=== PATIENT | female | born 1940 | race Caucasian/White ===

== ENCOUNTER 2023-12-19 11:44 | Emergency (ER) | payer MEDICARE, SELFPAY ==
--- NOTE | ~2023-12-19 | CT_ITS ---
EXAMINATION: CT facial & cervical spine wo DATE: 12/19/2023 12:46 INDICATION: Head injury. TECHNIQUE: Computed tomography (CT) of the maxillofacial region and cervical spine was performed with out intravenous contrast. Automated exposure control and iterative reconstruction technique were empl oyed. The dose-length product was 136.39 mGy-cm. COMPARISON: None FINDINGS: MAXILLOFACIAL CT: There is a left frontal scalp laceration. There are likely changes of ocular lens replacement surgeri es. There is rightward deviation of the nasal septum. There is complete opacification of right maxill tamera sinus with thickening and sclerosis of the sinus boudreaux, consistent with chronic sinusitis. There is a fracture of anterior wall of left maxillary sinus. There is hematoma in left maxillary sinus. CERVICAL SPINE CT: There is mild scarring at the lung apices. There is 7 degrees levocurvature of cervical spine. Verteb ral body heights are normal. There is mildly decreased disc height at C5-C6. The following disc level s are specifically discussed: C2-C3: There is no uncovertebral joint osteoarthritis. There is severe bilateral facet joint osteoart hritis. There is no neural foraminal stenosis. There is no central canal stenosis. C3-C4: There is ankylosis of left uncovertebral joint without hypertrophy. There is ankylosis of the facet joints with mild hypertrophy. There is mild left neural foraminal stenosis. There is no central canal stenosis. C4-C5: There is no uncovertebral joint osteoarthritis. There is severe bilateral facet joint osteoart hritis. There is mild right neural foraminal stenosis. There is no central canal stenosis. C5-C6: There is no uncovertebral joint osteoarthritis. There is severe bilateral facet joint osteoart hritis. There is mild left neural foraminal stenosis. There is no central canal stenosis. C6-C7: There is no uncovertebral joint osteoarthritis. There is severe bilateral facet joint osteoart hritis. There is mild left neural foraminal stenosis. There is no central canal stenosis. C7-T1: There is no uncovertebral joint osteoarthritis. There is severe bilateral facet joint osteoart hritis. There is no neural foraminal stenosis. There is no central canal stenosis. IMPRESSION: 1. Fracture of anterior wall of left maxillary sinus. 2. Chronic sinusitis. 3. Mild cervical spondylosis. Reviewed, dictated and finalized at location A.
--- NOTE | ~2023-12-19 | CT_ITS ---
EXAMINATION: CT brain wo con DATE: 12/19/2023 12:46 INDICATION: Head injury. TECHNIQUE: Computed tomography (CT) of the head was performed without intravenous contrast. The mA wa s adjusted according to patient size. Iterative reconstruction technique was employed. The dose-lengt h product was 681.00 mGy-cm. COMPARISON: None FINDINGS: There are scattered areas of low attenuation in the cerebral white matter, which is within normal limits for the patient's age. There is no intracranial hemorrhage, acute infarction, or abnorm al intracranial mass lesion. The ventricles are normal in size. There is complete opacification of ri ght maxillary sinus with thickening and sclerosis of the sinus boudreaux. There is an air/fluid level in left maxillary sinus. There are likely changes of ocular lens replacement surgeries. The mastoid air cells are normal. There is left frontal scalp soft tissue swelling. There is left cheek soft tissue s welling. There is a fracture of anterior wall of left maxillary sinus. IMPRESSION: 1. Normal aging brain. 2. Fracture of anterior wall of left maxillary sinus. 3. Chronic sinusitis. Reviewed, dictated and finalized at location A.
[2023-12-19 11:48] VITALS: BP 162/65; PULSE 61; RESP 16; TEMP 36.6; O2SAT 98
--- NOTE | 2023-12-19 13:04 | ED.FALL ---
HPI - Fall General Chief Complaint: Fall Stated Complaint: unwitnessed glf Time Seen by Provider: 12/19/23 12:00 History of Present Illness HPI Narrative: Patient is an 83-year-old female with dementia who presents ER after an unwitnessed fall at her correction. Laceration left supraorbital ridge. Bruising over the nose with swelling around the left thigh. Extraocular movements intact. Patient reports she can see. She is orient x1. Unknown last tetanus shot. Daughter bedside. Related Data Allergies Allergy/AdvReac Type Severity Reaction Status Date / Time acetaminophen [From Percocet] Allergy Unknown Verified 12/19/23 12:03 oxycodone [From Percocet] Allergy Unknown Verified 12/19/23 12:03 Sulfa (Sulfonamide Allergy Unknown Verified 12/19/23 12:03 Antibiotics) Review of Systems Review of Systems: ROS unobtainable: Yes unobtainable due to mental status PMFSH Past Medical History Medical History (Updated 12/19/23 @ 15:13 by Max Oconnor MD) Anxiety Chronic kidney disease Dementia Depression Hypothyroidism Surgical History Surgical History (Updated 12/19/23 @ 13:06 by Max Oconnor MD) Surgical history unknown Exam Narrative: GENERAL: Well-appearing, well-nourished, and in no acute distress. HEAD: Normocephalic, 3 cm laceration left supraorbital ridge. EYES: PERRL and EOMI. Periorbital swelling left eye. Two small skin tears inferior to left eye. ENT: Mucous membranes moist. Puncture wound left upper lip NECK: Supple. C-spine immobilized without midline tenderness. CHEST: Clear to auscultation. No respiratory distress. HEART: Regular rate and rhythm. Normal peripheral pulses. ABDOMEN: Soft, nontender, nondistended. EXTREMITIES: Normal range of motion. No edema. SKIN: Warm, dry, no rash. As above. NEURO: Alert and oriented x1. Course Course Emergency Course: Patient resting comfortably. Sinus precautions for maxillary fracture as well as Augmentin. Follow up if needed. Daughter verbalized understanding. Laceration repaired. Discharged. Vital Signs Vital signs: Vital Signs Temperature 97.8 F 12/19/23 11:48 Pulse Rate 61 12/19/23 11:48 Respiratory Rate 16 12/19/23 11:48 Blood Pressure 162/65 H 12/19/23 11:48 Pulse Oximetry 98 12/19/23 11:48 Oxygen Delivery Room Air 12/19/23 11:48 Temperature 97.8 F 12/19/23 11:48 Pulse Rate 61 12/19/23 11:48 Respiratory Rate 16 12/19/23 11:48 Blood Pressure 162/65 H 12/19/23 11:48 Pulse Oximetry 98 12/19/23 11:48 Oxygen Delivery Room Air 12/19/23 11:48 Procedures Laceration Laceration 1: Date: 12/19/23 Time: 15:10 Site: face Side (If applicable): left Size (cm): 3.5 Description: irregular and clean Depth: simple, single layer (into subcu) Local Anesthetic: lidocaine 1% and with epi Amount of anesthesia used (mL): 3 Pre-repair: wound explored, irrigated extensively and wound margins revised ====== Skin Level ====== Skin layer closed with: nylon and prolene Size (cm): 4-0 Number of sutures: 5 Technique: simple, interrupted ====== Subcutaneous Layer ====== Subcutaneous layer closed with: vicryl Size: 5-0 Number of sutures: 3 Technique: simple, interrupted ====== Muscle Layer ====== ====== Tendon Layer ====== MDM - Fall Imaging Data Radiologist's impression: ITS Impressions Head CT 12/19/23 12:50 IMPRESSION: 1. Normal aging brain. 2. Fracture of anterior wall of left maxillary sinus. 3. Chronic sinusitis. Head/Cervical Spine/Facial Bones CT 12/19/23 12:52 IMPRESSION: 1. Fracture of anterior wall of left maxillary sinus. 2. Chronic sinusitis. 3. Mild cervical spondylosis. Discharge Plan Discharge Clinical Impression: Facial laceration, Skin tear, Closed fracture of left maxillary sinus Patient Disposition: Home, Self-Care Condition: Stable Instructions: Antibiotic Form, Care For Your Stitches (ED), Facial Fracture (ED) Additional Instructions: Your sutures will need to come out in 7 days. Return the ER if the wound appears infected. Additionally you have a maxillary fracture and should not blow your nose. He will be placed on oral antibiotics prevent infection. Return to the ER if you have additional concerns. Prescriptions: New cetirizine [Zyrtec] 10 mg tablet 10 mg PO DAILY Qty: 14 0RF amoxicillin-pot clavulanate 875-125 mg tablet 1 tablet PO Q12H Qty: 20 0RF Follow-up/Referrals: Ike Hernandez MD [Physician] - 1 Week UNKNOWN,DOCTOR [Primary Care Provider] -
[2023-12-19] MEDS: TETANUS,DIPHTHERIA,AC PERTUSSIS ADULT (0.5 ML) BOOSTRIX IM (13:17)
[2023-12-19 15:13] VITALS: BP 149/63; PULSE 68; RESP 14; TEMP 36.6; O2SAT 97
[2023-12-19 16:13] VITALS: BP 102/89; PULSE 66; RESP 13; TEMP 36.9; O2SAT 99
== END 2023-12-19 16:16 ==
PROVIDERS: Emergency Provider Emergency Medicine
DX: S02.40DA Maxillary fracture, left side, initial encounter for closed fracture (principal); S01.112A Laceration without foreign body of left eyelid and periocular area, initial encounter; Z23 Encounter for immunization; N18.9 Chronic kidney disease, unspecified; E03.9 Hypothyroidism, unspecified; F03.90 Unspecified dementia, unspecified severity, without behavioral disturbance, psychotic disturbance, mood disturbance, and anxiety; J32.9 Chronic sinusitis, unspecified; M47.812 Spondylosis without myelopathy or radiculopathy, cervical region; W06.XXXA Fall from bed, initial encounter
CPT/HCPCS: 12052; 70450; 70486; 72125; 90471; 90715; 99284